=== PATIENT | female | born 1975 | race Caucasian/White ===

== ENCOUNTER 2021-12-31 07:16 | Emergency (ER) | payer MEDICAID ==
[~2021-12-31] VITALS: Ht 154.9 cm; Wt 100.0 kg
[2021-12-31] MEDS ORDERED: IBUP-2030 PO (07:56)
[2021-12-31] MEDS ORDERED: DULA1.5P SQ (07:56)
[2021-12-31] MEDS ORDERED: METF-416 PO (07:56)
[2021-12-31] MEDS ORDERED: CHOL400D7 PO (07:56)
[2021-12-31] MEDS ORDERED: KETOROLAC 30MG/ML VIAL IV STA (08:16)
[2021-12-31] MEDS ORDERED: SODIUM CHLORIDE 0.9% 1,000 ML IV ONE (08:30)
[2021-12-31 09:22] LABS: BASOPHILS % 0.9 % (0.0-2.0); HEMATOCRIT. 40.7 % (36.0-48.0); HEMOGLOBIN. 13.8 g/dL (12.0-16.0); LYMPHOCYTES % 34.1 % (20.0-50.0); MEAN CORPUSCULAR HEMOGLOBIN 28.1 pg (28.0-32.0); MEAN CORPUSCULAR VOLUME 82.8 fL (81.0-99.0); MEAN PLATELET VOLUME 8.6 fl (7.4-10.4); MONOCYTES % 4.1 % (2.0-8.0); NEUTROPHILS % 58.9 % (40.0-76.0); PLATELET 312 x1000/uL (130-400); RED BLOOD CELL COUNT 4.92 mill/uL (4.2-5.4); RED CELL DISTRIBUTION WIDTH 14.2 % (11.6-14.6)
[2021-12-31 09:24] LABS: CLARITY URINE CLEAR (CLEAR); COLOR URINE YELLOW (YELLOW); KETONES URINE TRACE (NEGATIVE); LEUKOCYTE ESTERASE URINE NEGATIVE (NEGATIVE); NITRITE URINE NEGATIVE (NEGATIVE); OCCULT BLOOD URINE NEGATIVE (NEGATIVE); PH URINE 5.5 (4.5-8.0); PROTEIN URINE 1+ (NEGATIVE); SPECIFIC GRAVITY URINE 1.024 (1.005-1.030); UROBILINOGEN URINE 0.2 E.U./dL (0.2-1.0)
[2021-12-31 09:30] LABS: CHLORIDE 98 mEq/L (98-107)
[2021-12-31 09:38] LABS: HCG SCREEN NEGATIVE
[2021-12-31] MEDS ORDERED: ASPIRIN 325MG EC TABLET PO ONE (10:30)
[2021-12-31 12:47] VITALS: BP 152/85
== END 2021-12-31 14:53 | disposition left against medical advice (07) ==
LOC: ER 07:16 → CANBEDREQ 22:10
DX: R10.31 Right lower quadrant pain (principal); R20.0 Anesthesia of skin; E11.9 Type 2 diabetes mellitus without complications; E78.00 Pure hypercholesterolemia, unspecified; I10 Essential (primary) hypertension; Z20.822 Contact with and (suspected) exposure to COVID-19
CPT/HCPCS: 36415; 70450; 71045; 74176; 80053; 81003; 82962; 83690; 83880; 84484; 84703; 85025; 87086; 87426; 93005; 96361; 96374; 99285; C9803; J1885; J7030; Z7610

== ENCOUNTER 2022-06-24 19:54 | Emergency (ER) | payer MEDICAID ==
[~2022-06-24] VITALS: Ht 154.9 cm; Wt 103.3 kg
[~2022-06-24 19:54] MED LIST: CHOL400D7 PO; DULA1.5P SQ; IBUP-2030 PO; METF-416 PO
[2022-06-24] MEDS ORDERED: SODIUM CHLORIDE 0.9% 1,000 ML IV ONE ×2 (21:00→23:15)
[2022-06-24 22:02] LABS: BASOPHILS % 0.6 % (0.0-2.0); HEMATOCRIT. 38.1 % (36.0-48.0); HEMOGLOBIN. 12.8 g/dL (12.0-16.0); LYMPHOCYTES % 37.7 % (20.0-50.0); MEAN CORPUSCULAR HEMOGLOBIN 27.2 pg (28.0-32.0); MEAN CORPUSCULAR VOLUME 81.3 fL (81.0-99.0); MEAN PLATELET VOLUME 8.7 fl (7.4-10.4); MONOCYTES % 5.8 % (2.0-8.0); NEUTROPHILS % 52.9 % (40.0-76.0); PLATELET 340 x1000/uL (130-400); RED BLOOD CELL COUNT 4.69 mill/uL (4.2-5.4); RED CELL DISTRIBUTION WIDTH 14.3 % (11.6-14.6)
[2022-06-24 22:09] LABS: CHLORIDE 100 mEq/L (98-107)
[2022-06-24 22:11] LABS: PROTHROMBIN TIME 10.3 sec (9.6-11.0)
[2022-06-24 22:34] LABS: BETA HYDROXYBUTYRATE 0.1 mMol/L (0.0-0.3)
[2022-06-24] MEDS ORDERED: INSULIN REGULAR (HUMULIN R) 300UNITS/3ML VIAL SUBCUT NR (23:15)
[2022-06-24 23:38] LABS: BG BASE EXCESS -1.1 mmol/L (-2.0-2.0); BG CARBOXYHEMOGLOBIN 0.5 % (0.5-1.5); BG DEOXYHEMOGLOBIN 2.4 % (0.0-5.0); BG FRACTION INSPIRED OXYGEN 21; BG HCO3 ACT 23.1 mmol/L (22.0-26.0); BG OXYGEN SATURATION 97.6 % (92.0-98.5); BG OXYHEMOGLOBIN 97.1 % (94.0-97.0); BG PCO2 36.7 mmHg (35.0-45.0); BG PH 7.416 (7.350-7.450); BG PO2 102.7 mmHg (75.0-100.0); BG SAMPLE SITE RIGHT RADIAL; BG TOTAL HEMOGLOBIN 13.6 g/dL (12.0-18.0); BG VENT MODE ROOM AIR
[2022-06-24 23:54] LABS: CLARITY URINE CLEAR (CLEAR); COLOR URINE YELLOW (YELLOW); KETONES URINE NEGATIVE (NEGATIVE); LEUKOCYTE ESTERASE URINE NEGATIVE (NEGATIVE); NITRITE URINE NEGATIVE (NEGATIVE); OCCULT BLOOD URINE NEGATIVE (NEGATIVE); PROTEIN URINE NEGATIVE (NEGATIVE); UROBILINOGEN URINE 0.2 E.U./dL (0.2-1.0)
[2022-06-25 01:41] VITALS: BP 136/61
== END 2022-06-25 01:44 | disposition home or self-care (01) ==
LOC: ER 19:54
DX: I10 Essential (primary) hypertension (principal); E11.65 Type 2 diabetes mellitus with hyperglycemia; M19.90 Unspecified osteoarthritis, unspecified site; E78.00 Pure hypercholesterolemia, unspecified; Z79.84 Long term (current) use of oral hypoglycemic drugs
CPT/HCPCS: 36415; 36600; 70450; 71045; 80053; 81003; 82010; 82375; 82805; 82962; 83690; 84484; 85025; 85610; 96360; 96372; 99285; J1815; J7030; Z7610